=== PATIENT | female | born 1980 | race African-American/Black ===

== ENCOUNTER 2017-01-06 05:22 | Inpatient (IN) ==
[2016-12-31 12:52] LABS: Basophils % 0.4 % (0.0-0.8); Eosinophils # 0.1 10*3/uL (0.0-0.87); Eosinophils % 0.9 % (0.00-10.9); Hematocrit 36.4 VOL% (35.7-47.0); Hemoglobin 11.1 GM/DL (12.0-16.0); Immature Granulocytes % 0.3 %; Immature Granulocytes Absolute 0.02 #; Lymphocytes # 2.5 10*3/uL (1.4-4.0); Lymphocytes % 32.1 % (21.3-54.2); Mean Corpuscular HGB Conc 30.5 GM/DL (32-36); Mean Corpuscular Hemoglobin 24 PG (27-34); Mean Corpuscular Volume 79.5 FL (87-102); Mean Platelet Volume 8.7 FL (9.6-12.0); Monocytes # 0.8 10*3/uL (0.11-0.8); Monocytes % 10.3 % (1.7-12.7); Neutrophils # 4.3 10*3/uL (1.4-7.4); Platelet Count 312 T/CUMM (130-400); Red Blood Count 4.58 MC/CUMM (3.8-5.5); Red Cell Distribution Width 16.5 % (9.3-17.3); White Blood Count 7.7 T/CUMM (4-12)
--- NOTE | 2016-12-31 13:05 | EKG Report ---
Stationary ECG Study [facility] Test Date: 12/31/2016 1:04:19 PM Pat Name: GARY LAFLEUR Department: Room: Gender: F Online Services Manager: MARIA L ABRAMS [birth year] : 1980 Requested by: Slime Yuan Order Number: [id number] Reading MD: LINA DUNN Intervals [place] Rate: 57 P: 80 AK: 169 QRS: 85 QRSD: 88 T: 73 QT: 424 QTc: 419 Interpretive Statements SINUS RHYTHM Electronically Signed On 12-31-16 17:52:29 CDT by LINA DUNN [email or web address]
[2016-12-31 13:20] LABS: Albumin 4.2 G/DL (3.4-5.0); Bilirubin,Total 0.6 MG/DL (0.2-1.0); Calcium 9.5 MG/DL (8.5-10.1); Osmolality,Calculated 269.1 MOS/KG (273-304); Potassium 4.2 MMOL/L (3.5-5.1); Total Protein 8.7 G/DL (6.4-8.3)
--- NOTE | 2016-12-31 13:35 | XRay Report ---
Exam: Chest 2 views Date: 12/31/2016 12:34 PM Indication: Respiratory preop evaluation of the chest Comparison study: None Findings: The heart, lungs, mediastinum, and bony structures are intact. Impression: 1. No acute cardiopulmonary pathology PROCEDURE INTERPRETED AT [facility] DEPARTMENT OF RADIOLOGY Final Report Signed by: Dr. Ishaan Tsang
[2017-01-06] MEDS ORDERED: ceFAZolin 2,000 MG in PREMIX 1 EACH IV ONE (06:00)
[2017-01-06] MEDS ORDERED: DIAZEPAM 5 MG TABLET PO ONE (06:00)
[2017-01-06] MEDS ORDERED: FAMOTIDINE 20 MG TABLET PO ONE (06:00)
[2017-01-06] MEDS ORDERED: hydrALAZINE 20 MG/1 ML VIAL IV STA (06:21)
[2017-01-06] MEDS ORDERED: DIAZEPAM 5 MG TABLET ONE (06:24)
[2017-01-06] MEDS ORDERED: FAMOTIDINE 20 MG TABLET ONE (06:25)
[2017-01-06] MEDS ORDERED: MICROFIBRILLAR COLLAGEN POWDER 1 GM CAN TOP ONE (06:25)
[2017-01-06] MEDS ORDERED: hydrALAZINE 20 MG/1 ML VIAL ONE (06:25)
[2017-01-06] MEDS ORDERED: hydrALAZINE 20 MG/1 ML VIAL IV PRN (06:27)
[2017-01-06] MEDS: LACTATED RINGERS 1,000 ML IV SCH ×4 (06:40→16:57)
[2017-01-06] MEDS ORDERED: LORazepam 2 MG/1 ML VIAL ONE (07:02)
[2017-01-06] MEDS ORDERED: NIFEdipine 10 MG CAPSULE PO STA (07:05)
[2017-01-06] MEDS ORDERED: LORazepam 2 MG/1 ML VIAL IV STA (07:05)
[2017-01-06] MEDS ORDERED: NIFEdipine 10 MG CAPSULE ONE (07:07)
--- NOTE | 2017-01-06 07:32 | History and Physical Update ---
History and Physical Update - History and Physical H&P was reviewed, the patient examined and there: are no changes in the patients condition since last H&P was completed. (we will get the pt's BP stable before taking her to the OR) - Dictation Physical: refer to scanned H&P
[2017-01-06] MEDS ORDERED: LIDOCAINE 2% 5 ML VIAL ONE (08:36)
[2017-01-06] MEDS ORDERED: PROPOFOL 200 MG/20 ML VIAL IV ONE (08:36)
[2017-01-06] MEDS ORDERED: KETOROLAC 30 MG/1 ML VIAL ONE ×2 (08:36→10:40)
[2017-01-06] MEDS ORDERED: DEXAMETHASONE 4 MG/1 ML VIAL ONE (08:36)
[2017-01-06] MEDS ORDERED: ONDANSETRON 4 MG/2 ML VIAL ONE (08:36)
[2017-01-06] MEDS ORDERED: PHENYLEPHRINE 1 MG/10 ML SYRINGE IV ONE (08:36)
[2017-01-06] MEDS ORDERED: ROCURONIUM 100 MG/10 ML VIAL IV ONE (08:36)
[2017-01-06 10:24] LABS: Apearance,Urine CLEAR (Clear); Bilirubin,Urine Negative (Negative); Blood, Urine Negative (Negative); Glucose,Urine (UA) Negative (Negative); Ketones,Urine Negative (Negative); Nitrite,Urine Negative (Negative); Protein,Urine Negative; RBC,Urine <1 /HPF (0-4); Squamous Epithelial Cell,Urine Occasional /HPF (0-10); Urine Color Colorless (Yellow); Urine Specific Gravity 1.004 (1.001-1.035); Urine Urobilinogen < 2.0 EU/DL (0.2-1.0); WBC,Urine <1 /HPF (0-6)
[2017-01-06] MEDS ORDERED: SEVOFLURANE 1 UNIT/15 MINUTE INH ONE (10:39)
--- NOTE | 2017-01-06 10:39 | Operative Note ---
Date of procedure: 01/06/17 Pre-op diagnosis: fibroids, pelvic pain Post-op diagnosis: same Procedure: LEVIS/ Bilateral salpingectomy Findings: small uterus , thick adhesion of the bladder to the lower uterine segment, normal ovaries, prior tubal ligation Procedure: The patient was consented for a total abdominal hysterectomy and possible bilateral salpingo-oophorectomy risk benefits alternatives and complications were reviewed with the patient the patient was amenable to the procedure. The patient was thus taken back to the operating room where general anesthesia was found to be adequate and the patient was prepped and draped in the usual sterile fashion. A scar from prior sections was excised in the lower abdominal area and the incision was extended to the fascia and the fascia incised midline and extended laterally with Rosenbaum scissors. The superior aspect of the fascial incision was dissected off the rectus muscle the same was done with the inferior aspect of the fascial incision. The rectus muscle was divided in the midline and there was no peritoneum visible because it was scarred to the lower rectus muscle from her prior surgeries so the peritoneum was entered immediately as the rectus muscle was divided. The uterus was noted to be mobile and small in nature using laps the bowel was packed away and the O' Wil-O'Rios retractor was carefully introduced into the abdominal cavity and the bladder blade and abdominal blade were inserted to help with retraction. The Pat clamps were placed on either cornu to elevate the uterus. The round ligaments on either side were visualized and serially clamped using the LigaSure cauterized and cut bilaterally. Hemostasis was assured. The anterior leaf of the broad ligament was then opened and dissected anteriorly to help dissect the bladder off of the lower uterine segment. An area of avascular mesosalpinx was opened up as well so the uterine ovarian ligament was isolated on either side. Using the LigaSure device the pedicle was clamped cauterized 3 times and then cut bilaterally. Hemostasis was assured. The bladder was carefully dissected off the lower uterine segment using sharp dissection and then the uterine vessels on either side were skeletonized. Using the LigaSure device first the left uterine artery was clamped cauterized 3 times then cut in the same was then done on the right side. Straight Christina's were used serially on either side clamped cut and suture ligated using 0 Vicryl. Hemostasis again was assured. The uterosacral ligaments on either side were clamped using a curved Pat cut and suture ligated then Shaji scissors were used to amputate the cervix off of the vaginal cuff. The cuff was then reapproximated using 0 Vicryl in a running locked fashion and serially sutured to the uterosacral ligaments on either side. Hemostasis was assured. Copious irrigation was performed. All the pedicles were analyzed and noted to be hemostatic. Attention was then turned to the fallopian tubes which were both amputated using the LigaSure device. Both ovaries look normal. Once hemostasis was assured Surgicel was placed over the vaginal cuff in order to help with further hemostasis and Interceed was wrapped around either ovary to help prevent adhesions. Sponge lap and instrument counts were correct 3 at this point wants everything was removed from the abdominal cavity. The muscle was reapproximated using 3-0 Vicryl in an interrupted fashion. The fascia was reapproximated using 0 Vicryl in a running fashion starting at either angle and tying in the middle. The subcutaneous fat was reapproximated using 3-0 Vicryl in a running fashion and the skin was reapproximated using 3-0 Monocryl in subcuticular fashion. Again sponge lap and instrument counts were correct 3 and the patient was sent to the recovery room in stable condition. Anesthesia: GETA Surgeon / Physician: Slime Pulido Estimated blood loss: other (50) IV fluids: 2,000 Urine output: 300 (clear) Specimens: other (cervix, uterus , fallopian tubes) Condition: stable Disposition: PACU Results - Labs CBC & BMP: 12/31/16 12:47 12/31/16 12:47 Discharge Plan - Discharge Medications No Action Lisinopril/Hctz 20-12.5 [Prinzide 20-12.5] 1 tablet PO BEDTIME amLODIPine [Norvasc] 5 mg PO BEDTIME - Follow Up or Referral - Forms/Instructions
[2017-01-06] MEDS ORDERED: MIDAZOLAM 2 MG/2 ML VIAL ONE (10:40)
[2017-01-06] MEDS ORDERED: ONDANSETRON 4 MG/2 ML VIAL IV PRN (10:40)
[2017-01-06] MEDS ORDERED: fentaNYL 100 MCG/2 ML VIAL ONE (10:40)
[2017-01-06] MEDS ORDERED: BENZOCAINE/MENTHOL LOZENGE 18/BOX PO PRN (10:40)
[2017-01-06] MEDS ORDERED: HYDROmorphone 2 MG/1 ML VIAL ONE (10:40)
[2017-01-06] MEDS ORDERED: ACETAMINOPHEN 325 MG TABLET PO PRN (10:40)
[2017-01-06] MEDS ORDERED: BISACODYL 10 MG SUPP RECTAL PRN (10:40)
[2017-01-06] MEDS ORDERED: SCOPOLAMINE 1.5 MG PATCH TRANSDERM ONE (10:40)
[2017-01-06] MEDS ORDERED: oxyCODONE/ACETAMINOPHEN 5-325 MG TABLET PO PRN (10:40)
[2017-01-06] MEDS ORDERED: ACETAMINOPHEN 1,000 MG/100 ML VIAL IV ONE (10:40)
[2017-01-06] MEDS ORDERED: LACTATED RINGERS 2,000 ML IV ONE (10:41)
--- NOTE | 2017-01-06 10:45 | Anesthesia ---
Anesthesia Post OP - Post Ansesthetic Evaluation Patient seen in post op: Yes Resp: within normal limits CV: within normal limits Mental: within normal limits Temp: within normal limits Ppwy-[id number]-[id number]: within normal limits Nausea and Vomiting: within normal limits Pain: within normal limits
[2017-01-06] MEDS ORDERED: NALOXONE 0.4 MG/ML VIAL IV PRN (10:50)
[2017-01-06] MEDS ORDERED: HYDROmorphone PCA 30 MG/30 ML SYRINGE IV SCH (11:00)
[2017-01-06] MEDS: NIFEdipine 10 MG CAPSULE PO SCH ×2 (15:30→21:22)
[2017-01-07] MEDS: LACTATED RINGERS 1,000 ML IV SCH (02:17)
[2017-01-07 06:45] LABS: Basophils % 0.1 % (0.0-0.8); Eosinophils % 0.1 % (0.00-10.9); Hematocrit 28.1 VOL% (35.7-47.0); Hemoglobin 8.7 GM/DL (12.0-16.0); Immature Granulocytes % 0.5 %; Immature Granulocytes Absolute 0.08 #; Lymphocytes # 1.6 10*3/uL (1.4-4.0); Lymphocytes % 9.8 % (21.3-54.2); Mean Corpuscular Hemoglobin 24 PG (27-34); Mean Corpuscular Volume 78.7 FL (87-102); Mean Platelet Volume 9.5 FL (9.6-12.0); Monocytes # 1.1 10*3/uL (0.11-0.8); Monocytes % 6.3 % (1.7-12.7); Neutrophils # 13.9 10*3/uL (1.4-7.4); Neutrophils % 83.2 % (38.7-73.9); Platelet Count 278 T/CUMM (130-400); Red Blood Count 3.57 MC/CUMM (3.8-5.5); Red Cell Distribution Width 16.5 % (9.3-17.3); White Blood Count 16.7 T/CUMM (4-12)
[2017-01-07 07:09] LABS: Calcium 7.9 MG/DL (8.5-10.1); Osmolality,Calculated 268.1 MOS/KG (273-304)
[2017-01-07] MEDS: IBUPROFEN 800 MG TABLET PO PRN ×2 (08:00→19:30)
[2017-01-07] MEDS: oxyCODONE/ACETAMINOPHEN 5-325 MG TABLET PO PRN ×3 (08:00→19:30)
[2017-01-07] MEDS: MAGNESIUM HYDROXIDE SUSP 30 ML UDCUP PO PRN ×2 (09:00→19:30)
[2017-01-07] MEDS: NIFEdipine 10 MG CAPSULE PO SCH ×3 (09:00→21:56)
[2017-01-07] MEDS: SIMETHICONE CHEW 80 MG TABLET PO PRN (09:00)
[2017-01-07] MEDS: DOCUSATE SODIUM 100 MG CAPSULE PO PRN ×2 (09:00→19:30)
--- NOTE | 2017-01-07 10:52 | Pathology Report from [facility] ---
ACCESSION # : [id number] PATIENT NAME : Elsie Lafleur ORDERING DR : Sliem Núñez MD CLINICAL HX: Uterine fibroids, pelvic pain, chronic HTN POST-OP DX: Same SPECIMEN INFO: #1 Uterus and cervix #2 Right tube #3 Left tube GROSS DESCRIPTION: The specimen is received in formalin labeled with the patient 's name Elsie Lafleur in 2 parts. The first labeled #1 "UTERUS AND CERVIX" is a 109 gram uterus and cervix which measures 10.0 x 5.5 x 12.0 cm. The serosa is red benjamin with a rare adhesion noted. The cervix measures 3.2 cm. The cervical os measures 0.5 cm. The endocervical canal is benjamin and patent. The mucosal surface of the endometrium is focally thickened measuring up to 0.7 cm. Sectioning reveals a single white intramural nodule measuring 1.1 cm. Sections submitted 1A-Cervix, 0P-H-Sezkwcwyvxgycl, 1D-Serosal adhesions, 1 E-Posterior uterine serosa and nodule.#2 Consists of an fimbriated fallopian tube segment measuring 2.8 x 0.7 cm with a 2.0 x 1.7 cm paratubal cyst noted. Car Rental Clerk sections are submitted in cassette #2.#3 Consists of a fimbriated fallopian tube segment measuring 10.0 x 0.6 cm with a 1.2 x 1.1 cm paratubal cyst noted. Car Rental Clerk sections are submitted in cassette #3. DIAGNOSIS FOR ELSIE LAFLEUR: #1 UTERUS & CERVIX: Chronic cystic cervicitis, endocervical polyps. Mid secretory endometrium. Adenomyosis. Leiomyoma.#2 RIGHT FALLOPIAN TUBE SEGMENT: Fallopian tube tissue with a paratubal cyst.#3 LEFT FALLOPIAN TUBE SEGMENT: Fallopian tube tissue with a paratubal cyst. SERVICE DATE: 01/06/2017 REPORT DATE: 01/07/2017 PATHOLOGIST: Loan Lucio
--- NOTE | 2017-01-07 12:36 | OB/GYN Progress Note ---
Assessment and Plan (1) Fibroids Status: Acute Assessment and plan: POD#1 s/p ELVIS . doing well . continue routine Postop care. BPs are under good control at this time Current Visit: Yes DRAW TENDER - PN: Subj Interval history: The pt has no complaints this morning. She is feeling hungry. Her pain is under good control. Exam DRAW TENDER - Constitutional Vitals: Vital Signs Temp Pulse Resp BP Pulse Ox Pulse Ox 01/07/17 11:21 97.6 F 98 H 20 114/78 96 01/07/17 08:00 92 H 20 01/07/17 07:28 97.9 F 92 H 20 123/73 96 01/07/17 04:00 97.9 F 99 H 18 127/82 97 01/07/17 02:00 18 01/07/17 00:00 98.9 F 99 H 18 124/81 99 01/06/17 21:22 84 20 131/81 01/06/17 20:00 97.1 F L 86 18 140/92 99 01/06/17 15:00 97.4 F L 75 18 108/75 97 01/06/17 14:00 80 18 106/69 98 01/06/17 13:00 80 18 110/74 98 General appearance: normal weight, no acute distress - Respiratory Respiratory exam: Absent: accessory muscle use - Cardiovascular Cardiovascular exam: Present: regular rate and rhythm - GI/Abdominal GI/Abdominal exam: Present: soft. Absent: distended, guarding, rebound - Extremities Exam Extremities exam: Absent: calf tenderness - Neurological Exam Neurological exam: Present: alert, oriented X3 - Psychiatric Psychiatric exam: Present: normal affect, normal mood - Skin Skin exam: Present: normal color Results - Labs CBC & BMP: 01/07/17 05:53 01/07/17 05:53
[2017-01-08] MEDS: IBUPROFEN 800 MG TABLET PO PRN ×2 (03:04→09:50)
[2017-01-08] MEDS: oxyCODONE/ACETAMINOPHEN 5-325 MG TABLET PO PRN ×2 (03:04→09:50)
[2017-01-08] MEDS: DOCUSATE SODIUM 100 MG CAPSULE PO PRN (09:30)
[2017-01-08] MEDS: MAGNESIUM HYDROXIDE SUSP 30 ML UDCUP PO PRN (09:30)
[2017-01-08] MEDS: NIFEdipine 10 MG CAPSULE PO SCH ×2 (09:30→15:00)
[2017-01-08] MEDS: SIMETHICONE CHEW 80 MG TABLET PO PRN (09:30)
--- NOTE | 2017-01-08 13:26 | OB/GYN Progress Note ---
Assessment and Plan (1) Fibroids Status: Acute Assessment and plan: POD#2 s/p ELVIS . The pt is doing well . continue routine Postop care. BPs are under good control at this time. Continue current BP medication for now. Current Visit: Yes FISHERIES SPECIALIST - PN: Subj Interval history: The pt is passing flatus and is tolerating PO. She has not had a BM yet. She is voiding well and her pain is under good control. Exam FISHERIES SPECIALIST - Constitutional Vitals: Vital Signs Temp Pulse Resp BP Pulse Ox 01/08/17 11:29 98.3 F 106 H 20 136/85 96 01/08/17 08:00 18 01/08/17 07:28 98.2 F 96 H 18 122/86 96 01/08/17 06:00 18 01/08/17 04:00 98.7 F 98 H 18 138/81 97 01/08/17 02:00 18 01/08/17 00:00 97.7 F 112 H 20 122/72 98 01/07/17 20:00 98.3 F 110 H 20 151/84 98 01/07/17 18:00 20 01/07/17 16:00 18 01/07/17 15:23 98.4 F 95 H 20 128/83 96 01/07/17 14:00 20 General appearance: normal weight, no acute distress - Respiratory Respiratory exam: Absent: accessory muscle use - Cardiovascular Cardiovascular exam: Present: regular rate and rhythm - GI/Abdominal GI/Abdominal exam: Present: other (incision healing well ). Absent: guarding, rebound - Extremities Exam Extremities exam: Absent: calf tenderness - Neurological Exam Neurological exam: Present: alert, oriented X3 - Psychiatric Psychiatric exam: Present: normal affect, normal mood - Skin Skin exam: Present: normal color Results - Labs CBC & BMP: 01/07/17 05:53 01/07/17 05:53
[2017-01-08 15:21] VITALS: BP 144/90
--- NOTE | 2017-01-08 17:10 | Discharge Summary ---
Hospital Course - Hospital Course Hospital Course: The patient was admitted for a hysterectomy she underwent a total abdominal hysterectomy without any complications and was discharged home per her request on postoperative day #2. Her hospital course and her surgery were both uncomplicated. Diagnosis - Discharge Diagnosis (1) Fibroids Status: Acute Specialty Discharge - Follow Up or Referrals Follow up with: Slime Pulido MD [Physician] - 01/22/17 3:00 pm Discharge Plan - Discharge Data Disposition: Disch To Home/Self Care Condition at Discharge: Stable Discharge Diet: advance to your usual diet Hygiene: may shower Weight Bearing at Discharge: full weight bearing Driving: not until seen by doctor Contact your physician if you experience:: fever over 101, Difficulty voiding, Redness or swelling, Nausea/Vomiting, Shortness of breath, Bleeding, pain uncontrolled by pain medications - Discharge Medications New oxyCODONE/ACETAMINOPHEN 5-325 [Percocet 5-325] 1 - 2 tablet PO Q6H PRN #30 tablet PRN Reason: Abdominal Pain No Action Lisinopril/Hctz 20-12.5 [Prinzide 20-12.5] 1 tablet PO BEDTIME amLODIPine [Norvasc] 5 mg PO BEDTIME - Follow Up or Referral Follow Up: Slime Pulido MD [Physician] - 01/22/17 3:00 pm - Forms/Instructions Instructions: Abdominal Hysterectomy (DC), Acute Wound Care (DC) Exam - Constitutional Vitals: Period Temp Pulse Resp BP Sys/Lainez Pulse Ox Last 24 Hr 97.7 F-98.7 F 96-112 18-20 122-151/72-90 96-98 DS: Provider Date of admission: 01/06/17 05:22 Primary care physician: Nadia Yanez NP Attending physician on admission: Slime Winslow- Consults: 01/06/17 12:52 Consult to Pharmacy [CONS] Routine Reason for Pharmacy Consult: Adjust Meds Renal Funct Discharging clinician: Slime Winslow- Expected date of discharge: 01/08/17
== END 2017-01-08 16:00 | disposition home or self-care (01) | DRG 743 ==
LOC: N.SDSINP 05:22 → N.OB 11:50
PROVIDERS: ADMIT Obstetrics & Gynecology; ATTEND Obstetrics & Gynecology

== ENCOUNTER 2017-06-22 11:09 | Inpatient (IN) ==
[2017-06-22] MEDS ORDERED: ASPIRIN 325 MG TABLET PO STA (11:44)
[2017-06-22] MEDS ORDERED: niCARdipine 25 MG/10 ML VIAL IV ONE (11:48)
[2017-06-22] MEDS ORDERED: ASPIRIN 325 MG TABLET ONE (11:49)
--- NOTE | 2017-06-22 11:51 | Emergency Department Note ---
Arrival - Arrival Chief Complaint: Chest Pain Stated Complaint: chest pain,SOB ED Nursing Triage Note: Pt c/o chest pain and SOB x 2 days that is worse when she lays down. Pt states it has been a while since taking BP meds. Mode of Arrival: Wheelchair Limitations: No Limitations Source: Patient, RN Notes Reviewed Time Seen by Provider: 06/22/17 11:43 - History of Present Illness HPI Narrative: Patient is a 37-year-old black female with a known history of hypertension [place] St[place]ane[place] [facility] [place] to the emergency department today with chest pain and shortness of breath. Chest pain is substernal. Patient denies worsening of chest pain with exertion. She states that she does have some shortness of breath when she lies down flat and her chest pain seems to get worse when she is lying flat. The patient has not taken her antihypertensive medications in some 2 weeks. She denies lower extremity edema. Onset (ago): day(s) (2) Consistency: constant Severity: moderate Date of Last Menstrual Period: HYST Allergies/Adverse Reactions: Allergies Allergy/AdvReac Type Severity Reaction Status Date / Time No Known Allergies Allergy Verified 11/05/16 11:10 Home Medications: Home Medications Medication Instructions Recorded Confirmed Type NIFEdipine CAP [Procardia] 10 mg PO TID 04/26/17 04/26/17 History Omeprazole [Prilosec] 20 mg PO DAILY #14 capsule 04/26/17 Rx Review of System - Review of System 12 point system: reviewed and no additional remarkable complaints except as stated - Review of System Constitutional: Absent: chills, fever Respiratory: Absent: cough Cardiovascular: Present: chest pain, dyspnea on exertion Gastrointestinal: Absent: nausea, vomiting Medical,Surgical,& Family Hx - Medical History Cardio: History of: Hypertension Neurology: No history of: Brain Aneurysm, Cerebral Hemorrhage, Cerebrovascular Accident , Cerebral Palsy, Dementia, Migraine, Multiple Sclerosis, Parkinson's Disease, Peripheral Neuropathy, Seizures, TIA, Neurologocal Cancer Respiratory: History of: Bronchitis No history of: Asthma, COPD, Intubation, Obstructive Sleep Apnea, Pulmonary Embolism, Pulmonary Hypertension, Pneumonia, Lung Cancer, Respiratory Problems ( flu vac- no; pneu vac- no.) Gastrointestinal: History of: GERD No history of: Gastrointestinal Bleed, Hemorrhoids, Hematochezia, Hepatitis, Liver Problems, Pancreatitis, Polyps, Ulcerative Colitis, Gastrointestinal Cancer, GI Problems Musculoskeletal: No history of: Amputation Reproductive: History of: Ovarian Cysts (rt ovary), Reproductive Problems ( uterine fibroids, pelvic pain) Other: No history of: Anesthesia Reactions - Surgical History Thoracic Surgeries: Patient denies;: Lobectomy Neurologic Surgeries: Patient denies: Brain Aneurysm, Cerebral Hemorrhage, Neurologic Surgery HEENT Surgeries: Patient denies: Tonsilectomy & Adenoidectomy Abdominal Surgeries: Patient denies: Abdominal Surgery, Appendectomy, Cholecystectomy, Colonoscopy , Gastric Bypass Surgery, EGD, Hernia Repair Reproductive Surgeries: Surgical HX of;: Section (x3), Hysterectomy (), Tubal Ligation Patient denies;: Genitourinary Surgery - Family History Family History: Reports;: Family Cancer (mother breast ca), Family Diabetes ( mother), Family Heart Disease (mother), Family Hypertension (mother), Family Stroke (mother) Denies;: Family Anesthesia Reaction, Family Psychiatric Problems - Social History Smoking Status: Former smoker Exam Vital Signs: Vital Signs Temperature 97.9 F 06/22/17 11:32 Pulse Rate 76 06/22/17 11:32 Respiratory Rate 24 06/22/17 11:32 Blood Pressure 242/140 06/22/17 11:32 O2 Sat by Pulse Oximetry 100 06/22/17 11:32 GENERAL: This is a well-nourished well-developed black female in no apparent distress. VITAL SIGNS: Reviewed HEENT: Head is atraumatic and normocephalic. Pupils are equal round react to light. Extraocular movements are intact. Oropharynx is benign with moist mucous membranes. NECK: Neck is soft and supple without tenderness. There are no masses. There is no lymphadenopathy. LUNGS: Lungs are clear to auscultation. Chest rises symmetrically. There is no chest wall tenderness. CV: Heart is regular rate and rhythm without murmurs rubs or gallops. ABDOMEN: Abdomen is soft, nontender to palpation. There are no abdominal abnormal masses palpated. There is no organomegaly. Bowel sounds are present and active. SKIN: Skin is warm and dry. No rash. EXTREMITIES: Patient has full range of motion without tenderness. There is no pedal edema. NEUROLOGIC: Awake alert and oriented 4. Cranial nerves II through XII are grossly intact. Motor is 5 over 5 in all extremities bilaterally. Course Course Narrative: Patient was started on Cardene infusion in the emergency department. - Consultations Consultation #1: Discussed with hospitalist. Patient will be admitted to their service. Time: 12:48 Results - Labs CBC & BMP: 06/22/17 12:15 Lab Results: I have reviewed the patients labs - EKG EKG results: interpreted by ERMD - Impressions EKG: Normal sinus rhythm with a rate of 90, normal ST T waves, normal axis. - Diagnostic Findings Procedure: Chest x-ray: image reviewed by me (No cardiomegaly, no pleural effusions.) Disposition Clinical Impression: Hypertensive urgency, Noncompliance with medication regimen, Malignant hypertension Case discussed with: patient, patient's family Disposition: Still a Patient Condition: Guarded
[2017-06-22] MEDS ORDERED: niCARdipine INJ 25 MG in SODIUM CHLORIDE 0.9% 240 ML IV SCH (12:00)
--- NOTE | 2017-06-22 12:09 | XRay Report ---
History: Chest pain Date: 06/22/2017 Study: Chest x-ray PA and lateral Comparison exam: January 11, 2017 The cardiac silhouette is upper normal in size. There is no mediastinal mass. The pulmonary vasculature is not engorged. The lungs and pleural spaces are clear. Osseous structures are unchanged. Impression: No acute cardiopulmonary process compared to the previous study PROCEDURE INTERPRETED AT [facility] DEPARTMENT OF RADIOLOGY Final Report Signed by: Dr. Christine Sykes
[2017-06-22 12:26] LABS: Basophils % 0.6 % (0.0-0.8); Eosinophils # 0.1 10*3/uL (0.0-0.87); Eosinophils % 1.4 % (0.00-10.9); Hemoglobin 12.4 GM/DL (12.0-16.0); Immature Granulocytes % 0.3 %; Immature Granulocytes Absolute 0.02 #; Lymphocytes # 1.9 10*3/uL (1.4-4.0); Lymphocytes % 25.9 % (21.3-54.2); Mean Corpuscular HGB Conc 31.8 GM/DL (32-36); Mean Corpuscular Hemoglobin 25 PG (27-34); Mean Platelet Volume 9.1 FL (9.6-12.0); Monocytes # 0.9 10*3/uL (0.11-0.8); Monocytes % 12.9 % (1.7-12.7); Neutrophils # 4.2 10*3/uL (1.4-7.4); Neutrophils % 58.9 % (38.7-73.9); Platelet Count 331 T/CUMM (130-400); Red Cell Distribution Width 17.3 % (9.3-17.3); White Blood Count 7.1 T/CUMM (4-12)
[2017-06-22 12:38] LABS: INR 0.9; PT Patient Result 9.9 SECS; Partial Thromboplastin Time 25.2 SECS (0-40)
[2017-06-22 12:52] LABS: Alanine Aminotransferase 34 U/L (13-56); Albumin 4.2 G/DL (3.4-5.0); Alkaline Phosphatase 77 U/L (45-117); Aspartate Amino Transferase 20 U/L (0-37); Bilirubin,Total < 0.39 MG/DL (0.2-1.0); Blood Urea Nitrogen 13 MG/DL (7-18); Calcium 9.4 MG/DL (8.5-10.1); Glucose 86 MG/DL (74-106); Osmolality,Calculated 273.7 MOS/KG (273-304); Potassium 3.9 MMOL/L (3.5-5.1); Sodium 138 MMOL/L (136-145); Total Protein 8.9 G/DL (6.4-8.3)
--- NOTE | 2017-06-22 13:27 | Hospitalist History & Physical ---
Assessment and Plan (1) Malignant hypertension Status: Acute Assessment and plan: The patient was noted to be grossly hypertensive at the time of ED presentation with a blood pressure recorded at 237/163. The patient readily admitted medication noncompliance. Despite the use of multiple intravenous anti- hypertensive agent the patient blood pressure remains grossly elevated. We continue Cardene as ordered. In addition, we will start lisinopril 20 mg daily , Coreg 12.5 twice daily, hydrochlorothiazide 25 mg daily, and 81 mg aspirin daily. We will also obtain lipid panel, hemoglobin A1c, urinalysis and urine culture. Echocardiogram and renal ultrasound has been ordered to assess for target organ damage. Current Visit: Yes (2) Noncompliance with medication regimen Status: Acute Assessment and plan: Spoke with patient in great detail regarding the diarrhea need to adhere to the suggested medical regimen. The patient readily reported that she had not taken her medications in "a while". Discussed with patient the severity of her current state of hypertension and possible undesired events associated with noncompliance. Current Visit: Yes History of Present Illness Chief complaint: Chest pain/shortness of breath History of present illness: This is a very pleasant 29-year-old female that presented to the ED at [facility] this morning for the evaluation of chest pain and shortness of breath. The patient has a medical history significant for hypertension, uterine fibroids, and ovarian cyst. Patient has a surgical history significant for section 3, hysterectomy, and tubal ligation. The patient reported the onset of symptoms 3 days prior to presentation. She describes the pain as substernal and seemingly worsens when she lies flat. In addition, the patient reports intermittent shortness of breath upon minimal exertion. The patient reports that she has not taken any of her antihypertensive agents" a while". Her mother came to visit her this morning and became concerned regarding her status prompting her to present to the ED for further evaluation. The patient was assessed at the time of ED presentation. The patient was noted to be grossly hypertensive with a blood pressure noted at 242/140. Intravenous antihypertensive agents were initiated immediately. Labs were obtained which were only significant for total protein of 8.9. Chest x-ray was essentially unremarkable. After brief discussion with both Dr. Mauro and Dr. Melissa, the patient will be admitted to the hospitalist service for continuation of care. Due to the severity of the patient's presenting symptoms, the patient will be placed on the telemetry unit for close observation. Home medications have been reviewed and reconciled. CODE STATUS discussed; patient is FULL CODE. Home Medications Medication Instructions Recorded Confirmed Type NIFEdipine CAP [Procardia] 10 mg PO TID 04/26/17 06/22/17 History Allergies Allergy/AdvReac Type Severity Reaction Status Date / Time No Known Allergies Allergy Verified 11/05/16 11:10 Medical,Surgical,& Family Hx - Medical History Cardio: History of: Hypertension Neurology: No history of: Brain Aneurysm, Cerebral Hemorrhage, Cerebrovascular Accident , Cerebral Palsy, Dementia, Migraine, Multiple Sclerosis, Parkinson's Disease, Peripheral Neuropathy, Seizures, TIA, Neurologocal Cancer Respiratory: History of: Bronchitis No history of: Asthma, COPD, Intubation, Obstructive Sleep Apnea, Pulmonary Embolism, Pulmonary Hypertension, Pneumonia, Lung Cancer, Respiratory Problems ( flu vac- no; pneu vac- no.) Gastrointestinal: History of: GERD No history of: Gastrointestinal Bleed, Hemorrhoids, Hematochezia, Hepatitis, Liver Problems, Pancreatitis, Polyps, Ulcerative Colitis, Gastrointestinal Cancer, GI Problems Musculoskeletal: No history of: Amputation Reproductive: History of: Ovarian Cysts (rt ovary), Reproductive Problems ( uterine fibroids, pelvic pain) Other: No history of: Anesthesia Reactions - Surgical History Thoracic Surgeries: Patient denies;: Lobectomy Neurologic Surgeries: Patient denies: Brain Aneurysm, Cerebral Hemorrhage, Neurologic Surgery HEENT Surgeries: Patient denies: Tonsilectomy & Adenoidectomy Abdominal Surgeries: Patient denies: Abdominal Surgery, Appendectomy, Cholecystectomy, Colonoscopy , Gastric Bypass Surgery, EGD, Hernia Repair Reproductive Surgeries: Surgical HX of;: Section (x3), Hysterectomy (), Tubal Ligation Patient denies;: Genitourinary Surgery - Family History Family History: Reports;: Family Cancer (mother breast ca), Family Diabetes ( mother), Family Heart Disease (mother), Family Hypertension (mother), Family Stroke (mother) Denies;: Family Anesthesia Reaction, Family Psychiatric Problems - Social History Smoking Status: Former smoker Have you smoked in the last 12 months: No Frequency of Alcohol Use: Occasionally Type of Drug Use: None Marital Status: Single Lives With:: Children Functional capacity: independent ambulation 12 point system: reviewed and no additional remarkable complaints except as stated Exam - Constitutional Vitals: Period Temp Pulse Resp BP Sys/Lainez Pulse Ox Last 24 Hr 97.9 F-97.9 F 76-91 17-24 193-242/125-177 100-100 General appearance: normal weight, no acute distress - Head Head exam: Present: normal inspection, normocephalic, atraumatic - Eye Eye exam: Present: EOMI. Absent: conjunctival injection Pupils: Present: SAMARA, normal accommodation - ENT ENT exam: Present: normal exam, normal external ear exam, normal oropharynx - Neck Neck exam: Present: normal inspection. Absent: lymphadenopathy, meningismus, tenderness, thyromegaly - Respiratory Respiratory exam: Present: clear to auscultation bilaterally. Absent: rales, rhonchi, stridor, wheezes - Cardiovascular Cardiovascular exam: Present: regular rate and rhythm. Absent: carotid bruit, diastolic murmur, gallop, JVD, rubs, systolic murmur - GI/Abdominal GI/Abdominal exam: Present: normal bowel sounds - Extremities Exam Extremities exam: Present: normal inspection, normal capillary refill, full ROM. Absent: edema - Back Exam Back exam: Present: normal inspection - Neurological Exam Neurological exam: Present: alert, oriented X3, CN II-XII intact - Psychiatric Psychiatric exam: Present: normal affect, normal mood - Skin Skin exam: Present: normal color, warm, dry Results - Labs CBC & BMP: 06/22/17 12:15 06/22/17 12:15 Lab Results: I have reviewed the past 24 hour labs
[2017-06-22 13:30] LABS: Apearance,Urine CLEAR (Clear); Bilirubin,Urine Negative (Negative); Blood, Urine Negative (Negative); Glucose,Urine (UA) Negative (Negative); Ketones,Urine Negative (Negative); Nitrite,Urine Negative (Negative); Protein,Urine Negative; RBC,Urine <1 /HPF (0-4); Squamous Epithelial Cell,Urine Occasional /HPF (0-10); Urine Color Straw (Yellow); Urine Specific Gravity 1.006 (1.001-1.035); Urine Urobilinogen < 2.0 EU/DL (0.2-1.0); WBC,Urine 2 /HPF (0-6)
[2017-06-22 13:38] LABS: Barbiturates Screen,Urine Negative (Negative); Benzodiazepines Screen,Urine Negative (Negative); Cannabinoid Screen,Urine Negative (Negative); Opiate Screen,Urine Negative (Negative); Phencyclidine Screen,Urine Negative (Negative)
--- NOTE | 2017-06-22 13:42 | Ultrasound Report ---
Renal ultrasound Indication: Hypertension Comparison: None available Findings: Kidneys are normal in size and echogenicity. No hydronephrosis or nephrolithiasis is seen. The right renal length is 10.6 cm. The left renal length is 9.8 cm. No free fluid or other abnormality is seen. Impression: No evidence of abnormality demonstrated. Ultrasound images stored and captured. PROCEDURE INTERPRETED AT [facility] DEPARTMENT OF RADIOLOGY Final Report Signed by: Dr. Daryn Michael
[2017-06-22 13:47] LABS: Risk Ratio 3.44
--- NOTE | 2017-06-22 14:47 | Order Completion Report ---
See report scanned to EMR
[2017-06-22] MEDS: ENOXAPARIN 40 MG/0.4 ML SYRINGE SUBCUT SCH (15:05)
[2017-06-22] MEDS: hydroCHLOROthiazide 25 MG TABLET PO SCH (15:05)
[2017-06-22] MEDS: LISINOPRIL 20 MG TABLET PO SCH (18:01)
[2017-06-22] MEDS: CARVEDILOL 12.5 MG TABLET PO SCH ×2 (18:02→20:12)
[2017-06-22] MEDS: POTASSIUM CHLORIDE 10 MEQ TABLET PO SCH (20:13)
[2017-06-22] MEDS: DOCUSATE SODIUM 100 MG CAPSULE PO SCH (20:13)
--- NOTE | 2017-06-22 20:21 | Order Completion Report ---
See report scanned to EMR
[2017-06-22] MEDS ORDERED: CARVEDILOL 12.5 MG TABLET PO SCH (21:00)
[2017-06-23 06:47] LABS: Basophils % 0.3 % (0.0-0.8); Eosinophils # 0.1 10*3/uL (0.0-0.87); Hematocrit 37.9 VOL% (35.7-47.0); Hemoglobin 11.9 GM/DL (12.0-16.0); Immature Granulocytes % 0.3 %; Immature Granulocytes Absolute 0.02 #; Lymphocytes # 1.8 10*3/uL (1.4-4.0); Lymphocytes % 30.8 % (21.3-54.2); Mean Corpuscular HGB Conc 31.4 GM/DL (32-36); Mean Corpuscular Hemoglobin 25 PG (27-34); Mean Corpuscular Volume 78.5 FL (87-102); Mean Platelet Volume 10.1 FL (9.6-12.0); Monocytes # 0.8 10*3/uL (0.11-0.8); Monocytes % 12.6 % (1.7-12.7); Neutrophils # 3.2 10*3/uL (1.4-7.4); Platelet Count 286 T/CUMM (130-400); Red Blood Count 4.83 MC/CUMM (3.8-5.5); Red Cell Distribution Width 17.4 % (9.3-17.3); White Blood Count 5.9 T/CUMM (4-12)
[2017-06-23 07:16] LABS: Albumin 3.4 G/DL (3.4-5.0); Bilirubin,Total 0.5 MG/DL (0.2-1.0); Calcium 9.2 MG/DL (8.5-10.1); Magnesium 2.5 MG/DL (1.8-2.4); Phosphorous 5.4 MG/DL (2.5-4.9); Potassium 4.8 MMOL/L (3.5-5.1); Total Protein 7.6 G/DL (6.4-8.3)
[2017-06-23] MEDS: LISINOPRIL 20 MG TABLET PO SCH (08:18)
[2017-06-23] MEDS: POTASSIUM CHLORIDE 10 MEQ TABLET PO SCH ×2 (08:18→20:30)
[2017-06-23] MEDS: DOCUSATE SODIUM 100 MG CAPSULE PO SCH ×2 (08:18→20:29)
[2017-06-23] MEDS: hydroCHLOROthiazide 25 MG TABLET PO SCH (08:18)
[2017-06-23] MEDS: ASPIRIN CHEW 81 MG TABLET PO SCH (08:18)
[2017-06-23] MEDS: PANTOPRAZOLE 40 MG TABLET PO SCH (08:18)
[2017-06-23] MEDS: CARVEDILOL 12.5 MG TABLET PO SCH ×2 (08:19→20:30)
[2017-06-23] MEDS ORDERED: hydrALAZINE 20 MG/1 ML VIAL IV PRN (08:26)
[2017-06-23] MEDS ORDERED: LISINOPRIL 20 MG TABLET PO SCH ×2 (09:00→16:38)
[2017-06-23] MEDS: ENOXAPARIN 40 MG/0.4 ML SYRINGE SUBCUT SCH (14:01)
[2017-06-23] MEDS ORDERED: MYLANTA/LIDO VISC/DIPH 300 ML BOTTLE SWISH/SWAL PRN (16:37)
--- NOTE | 2017-06-23 16:42 | Hospitalist Progress Note ---
Assessment and Plan (1) Malignant hypertension Status: Acute Assessment and plan: 1)malignant HTN- Her BP has come down with meds- I will stop HCTZ and decrease the lisinopril dose. continue to monitor. 2)atypical chest pain- try toradol. Try GI cocktail. Current Visit: Yes (2) Noncompliance with medication regimen Status: Acute Current Visit: Yes Hospitalist: Subjective Interval history: I saw Ms Carranza this morning. Her BP was improving but she complained of headache. Her headache resolved with norco. She also complained of pleuritic chest pain.It has persisted. Her CXR looks clear. Her troponins are normal and her EKG and telemetry does not have arrhythmia or acute ST changes. The pleuritic character of the pain is atypical of cardiac origin and I think it is musculoskeletal and she is tender to palpation in the center of her chest. She is not short of breath. No nausea. She does not have dyspnea on exertion. Exam - Constitutional Vitals: Period Temp Pulse Resp BP Sys/Lainez Pulse Ox Last 24 Hr 96.1 F-98.6 F 66-94 16-20 93-135/56-88 94-100 General appearance: no acute distress, over weight - Head Head exam: Present: normocephalic, atraumatic - Eye Eye exam: Present: EOMI. Absent: scleral icterus - Respiratory Respiratory exam: Present: clear to auscultation bilaterally - Cardiovascular Cardiovascular exam: Present: regular rate and rhythm, other (tender to palapation in chest) - GI/Abdominal GI/Abdominal exam: Present: normal bowel sounds, soft. Absent: tenderness - Extremities Exam Extremities exam: Absent: edema - Neurological Exam Neurological exam: Present: alert, oriented X3 - Skin Skin exam: Present: warm, dry Results - Labs CBC & BMP: 06/23/17 04:58 06/23/17 04:58 Lab Results: I have reviewed the past 24 hour labs
--- NOTE | 2017-06-23 17:34 | Order Completion Report ---
See report scanned to EMR
[2017-06-23] MEDS: KETOROLAC 15 MG/1 ML VIAL IV PRN (17:36)
[2017-06-24] MEDS: POTASSIUM CHLORIDE 10 MEQ TABLET PO SCH (08:27)
[2017-06-24] MEDS: ASPIRIN CHEW 81 MG TABLET PO SCH (08:27)
[2017-06-24] MEDS: PANTOPRAZOLE 40 MG TABLET PO SCH (08:27)
[2017-06-24] MEDS: CARVEDILOL 12.5 MG TABLET PO SCH (08:27)
[2017-06-24] MEDS: DOCUSATE SODIUM 100 MG CAPSULE PO SCH (08:27)
--- NOTE | 2017-06-24 10:46 | Discharge Summary ---
Hospital Course - Hospital Course Hospital Course: 37-year-old -Indian female with history of hypertension, uterine fibroids, and ovarian cysts admitted by the hospitalist service on 06/22/17 with complaints of chest pain shortness of breath. Patient was found to have malignant hypertension with blood pressure of 237/163 and noncompliance with her medication regimen. Renal ultrasound done showed no evidence of abnormality. Echocardiogram showed normal left ventricular size with mild concentric hypertrophy with normal systolic function with an EF of 65% and no valvular abnormalities. Patient's blood pressure medications have been adjusted. Chest pain found to be musculoskeletal in nature and resolved with Toradol. Patient has no chest pain or shortness of breath today. She will be discharged home with new blood pressure medications and 3 days worth of Toradol for musculoskeletal pain. She will need to follow-up with her primary care physician Anny Yanez in 1-2 weeks with blood pressure log. Care coordination, chart review, completed discharge paperwork took approximately 32 minutes. - Time spent with patient Time with patient DS: Greater than 30 minutes Diagnosis - Discharge Diagnosis (1) Noncompliance with medication regimen Status: Resolved (2) Malignant hypertension Status: Resolved Discharge Plan - Discharge Data Disposition: Disch To Home/Self Care Condition at Discharge: Stable Discharge Diet: heart healthy Activity: resume usual activities as tolerated Driving: no restrictions Contact your physician if you experience:: Shortness of breath, pain uncontrolled by pain medications - Discharge Medications New Carvedilol [Coreg] 12.5 mg PO BID #60 tablet Ketorolac Tab [Toradol Tab] 10 mg PO Q6H PRN #10 tablet PRN Reason: Pain Lisinopril [Prinivil] 10 mg PO DAILY #30 tablet Aspirin Chew Tab 81 mg PO DAILY tablet Discontinued NIFEdipine CAP [Procardia] 10 mg PO TID - Follow Up or Referral Follow Up: Nadia Yanez NP [Primary Care Provider] - 2 Weeks (with BP log) - Forms/Instructions Exam - Constitutional Vitals: Period Temp Pulse Resp BP Sys/Lainez Pulse Ox Last 24 Hr 97.4 F-98.6 F 69-77 18-20 101-140/56-88 98-100 Exam: 37-year-old -Indian female, no acute distress, alert and oriented Chest clear CV regular rate and rhythm Abdomen soft and nontender Extremities no edema Discharge Results Procedures and tests throughout hospitalization: Pending Orders 06/22/17 12:15 Thyroid Function [place], S Stat DS: Provider Date of admission: 06/22/17 12:57 Primary care physician: Nadia Yanez NP Attending physician on admission: Abel Melissa MD Discharging clinician: CAITLYN Kapadia Expected date of discharge: 06/24/17
[2017-06-24 12:03] VITALS: BP 112/64
[2017-06-24] MEDS: KETOROLAC 15 MG/1 ML VIAL IV PRN (12:17)
== END 2017-06-24 13:45 | disposition home or self-care (01) | DRG 305 ==
LOC: N.ED 11:09 → SUATTDRO 12:57 → N.EDINP 12:57 → N.TELEN 13:21
PROVIDERS: ADMIT Hospitalist; ATTEND Internal Medicine